=== PATIENT | female | born 1965 | race Caucasian/White ===

== ENCOUNTER 2017-07-14 03:09 | Emergency (ER) | payer SELFPAY ==
--- NOTE | 2017-07-14 05:34 | C.PDOC ---
History Of Present Illness Pt slipped and fell on icy sidewalk, c/o of headache , low back, left hip and left knee pain. Pt denies LOC , or vomiting. 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) Location Of Injury: Left: Hip, Knee, Posterior: Back Severity: Moderate Pain Scale Rating Of: 6 Past Medical History Vital Signs: Last Vital Signs Temp 98.2 F 07/14/17 03:20 Pulse 84 07/14/17 03:20 Resp 14 07/14/17 03:20 BP 121/65 07/14/17 03:20 Pulse Ox 99 07/14/17 05:38 - Medical History PMH: Asthma, Gastritis Denies: Chronic Kidney Disease - [facility] Procedures ESOPHAGOGASTRODUODENOSCOPY [EGD] W/CLOSED BIOPSY (10/01/14) Family History: States: Unknown Family Hx - Social History Hx Alcohol Use: No Hx Substance Use: No - Immunization History Hx Tetanus Toxoid Vaccination: No Hx Influenza Vaccination: No Hx Pneumococcal Vaccination: No Review Of Systems Musculoskeletal: Positive for: Back Pain. Negative for: Other (left knee pain, ;left hip pain) Neurological: Positive for: Headache. Negative for: Weakness, Numbness, Dizziness Physical Exam - Physical Exam Appears: Well, Non-toxic Head: Atraumatic, No Swelling, No Laceration Eye(s): bilateral: Normal Inspection, PERRL, EOMI Neck: Normal ROM, No Midline Cervical Tenderness Chest: Symmetrical, No Tenderness Cardiovascular: Rhythm Regular Respiratory: Normal Breath Sounds Gastrointestinal/Abdominal: Normal Exam, Soft, No Tenderness Back: Normal Inspection, Vertebral Tenderness (mid), Paraspinal Tenderness, No Straight Leg Raising Extremity: Bilateral: Atraumatic, Normal Color And Temperature Neurological/Psych: Oriented x3, Normal Motor, Normal Sensation Gait: Steady ED Course And Treatment O2 Sat by Pulse Oximetry: 99 Pulse Ox Interpretation: Normal - Other Rad LS X-Ray: Interpreted by Me, Viewed By Me Interpretation: No fx or subluxation Left hip/ knee X-Ray: Interpreted by Me, Viewed By Me Interpretation: No fx or dislocations Progress Note: Motrin PO ordered. On reeval pt feels better, in NAD and will d/ c home with pain meds. Pt understands and agrees with plan. discharge instructions were given Disposition Counseled Patient/Family Regarding: Diagnosis, Need For Followup, Rx Given - Disposition Referrals: [facility] [Outside] Disposition: HOME/ ROUTINE Disposition Time: 05:55 Condition: STABLE Additional Instructions: Please follwo up in clinic Take meds as directed Return to ER if worse Prescriptions: Ibuprofen [Motrin] 600 mg PO Q6H #24 tab Instructions: Contusion (DC) Forms: EXPO (Stateless) Print Language: MALAGASY - Clinical Impression Clinical Impression: Contusion, Low back pain, Left hip pain, Left knee pain
[2017-07-14 06:15] VITALS: BP 122/60; PULSE 75; RESP 18; TEMP 98.5; O2SAT 95
--- NOTE | 2017-07-14 08:35 | RAD ---
PROCEDURE: Left Knee Radiographs. HISTORY: COMPARISON: None available. FINDINGS: BONES: No acute displaced fracture. JOINTS: No dislocation. JOINT EFFUSION: No significant joint effusion. OTHER FINDINGS: None. IMPRESSION: No acute displaced fracture, dislocation, or significant joint effusion identified. If symptoms persist, or if there is continued clinical concern, x-ray follow-up in 7-10 days should be considered.
--- NOTE | 2017-07-14 08:35 | RAD ---
PROCEDURE: Radiographs of the Lumbar Spine. HISTORY: pain, fall COMPARISON: None available. FINDINGS: BONES: Alignment appears satisfactory. No listhesis. No acute displaced fracture identified. DISC SPACES: Unremarkable. OTHER FINDINGS: Pelvic calcifications, likely phleboliths. Mild constipation. IMPRESSION: No acute displaced fracture or subluxation identified.
--- NOTE | 2017-07-14 08:36 | RAD ---
Indication: Pain, fall Left hip with pelvis Comparison: None available Findings: No acute displaced fracture or dislocation identified. Pelvic calcifications, likely phleboliths. Sacroiliac joints appear intact. Mild constipation. Soft tissues appear unremarkable. No evidence of radiopaque foreign body. Impression: No acute displaced fracture or dislocation evident. If high clinical index of suspicion, suggest cross-sectional imaging for further evaluation. Otherwise, if symptoms persist or if there is continued clinical concern, x-ray follow-up in 7-10 days should be considered.
== END 2017-07-14 06:32 | disposition home or self-care (01) ==
LOC: C.ER 03:09
DX: M54.5 Low back pain (principal); M25.552 Pain in left hip; M25.562 Pain in left knee; T14.8XXA Other injury of unspecified body region, initial encounter; W00.0XXA Fall on same level due to ice and snow, initial encounter